=== PATIENT | female | born 1995 | race Two or more races ===

== ENCOUNTER 2025-09-19 10:06 | Outpatient (CLI) | payer OTHER | END 2025-09-19 10:07 | disposition home or self-care (01) | LOC: PRENATAL 10:06 | PROVIDERS: ATTEND Obstetrics & Gynecology Maternal & Fetal Medicine | DX: O44.02 Complete placenta previa NOS or without hemorrhage, second trimester (principal); O99.282 Endocrine, nutritional and metabolic diseases complicating pregnancy, second trimester; Z3A.21 21 weeks gestation of pregnancy ==